=== PATIENT | male | born 1960 | race Caucasian/White ===

== ENCOUNTER 2017-12-20 10:33 | Emergency (ER) | payer MEDICAID ==
[~2017-12-20] VITALS: Ht 172.7 cm; Wt 60.0 kg
[~2017-12-20 10:33] MED LIST: LORA-250 PO; METHADONE PO; PHEN100C4 PO; RESTORIL
[2017-12-20 10:59] VITALS: BP 158/81
[2017-12-20] MEDS ORDERED: LORAZEPAM 1MG TABLET PO ONE (11:00)
[2017-12-20 11:05] LABS: BASOPHILS % 0.3 % (0.0-2.0); EOSINOPHILS % 0.6 % (0.0-5.0); HEMATOCRIT. 43.1 % (42.0-52.0); LYMPHOCYTES % 13.5 % (20.0-50.0); MEAN CORPUSCULAR HEMOGLOBIN 32.1 pg (28.0-32.0); MEAN CORPUSCULAR VOLUME 92.4 fL (80.0-94.0); MEAN PLATELET VOLUME 9.4 fl (7.4-10.4); MONOCYTES % 3.1 % (2.0-8.0); NEUTROPHILS % 82.5 % (40.0-76.0); PLATELET 229 x1000/uL (130-400); RED BLOOD CELL COUNT 4.66 mill/uL (4.7-6.1); RED CELL DISTRIBUTION WIDTH 14.1 % (11.6-14.6)
[2017-12-20 11:11] LABS: CHLORIDE 101 mEq/L (98-107)
== END 2017-12-20 11:45 | disposition home or self-care (01) ==
LOC: ER 10:33
DX: R53.1 Weakness (principal); R11.2 Nausea with vomiting, unspecified; F19.939 Other psychoactive substance use, unspecified with withdrawal, unspecified; R03.0 Elevated blood-pressure reading, without diagnosis of hypertension; R00.1 Bradycardia, unspecified; G40.909 Epilepsy, unspecified, not intractable, without status epilepticus; R94.31 Abnormal electrocardiogram [ECG] [EKG]
CPT/HCPCS: 36415; 80053; 80185; 83880; 84484; 85025; 93005; 99285

== ENCOUNTER 2020-08-02 17:35 | Emergency (ER) | payer MEDICAID ==
[~2020-08-02] VITALS: Ht 175.3 cm; Wt 70.0 kg
[2020-08-02] MEDS ORDERED: SODIUM CHLORIDE 0.9% 1,000 ML IV ONE (18:15)
[2020-08-02 18:23] LABS: BASOPHILS % 0.1 % (0.0-2.0); HEMATOCRIT. 40.4 % (42.0-52.0); HEMOGLOBIN. 13.6 g/dL (14.0-18.0); LYMPHOCYTES % 12.3 % (20.0-50.0); MEAN CORPUSCULAR HEMOGLOBIN 32.1 pg (28.0-32.0); MEAN PLATELET VOLUME 8.8 fl (7.4-10.4); MONOCYTES % 5.5 % (2.0-8.0); NEUTROPHILS % 81.1 % (40.0-76.0); PLATELET 160 x1000/uL (130-400); RED BLOOD CELL COUNT 4.25 mill/uL (4.7-6.1); RED CELL DISTRIBUTION WIDTH 13.1 % (11.6-14.6)
[2020-08-02 18:30] LABS: CHLORIDE 104 mEq/L (98-107)
[2020-08-02] MEDS ORDERED: POTASSIUM CHLORIDE 20MEQ TABLET SR PO ONE (19:00)
[2020-08-02] MEDS ORDERED: PHENYTOIN SODIUM 1,000 MG in SODIUM CHLORIDE 0.9% 100 ML IV ONE (19:00)
[2020-08-02] MEDS ORDERED: PHENYTOIN SODIUM EXTENDED 100MG CAPSULE PO ONE (19:15)
[2020-08-02 20:22] VITALS: BP 124/84
== END 2020-08-02 20:29 | disposition home or self-care (01) ==
LOC: ER 17:35
DX: R56.9 Unspecified convulsions (principal); E87.6 Hypokalemia; F41.9 Anxiety disorder, unspecified; F17.290 Nicotine dependence, other tobacco product, uncomplicated; Z79.899 Other long term (current) drug therapy
CPT/HCPCS: 36415; 80053; 80185; 85025; 93005; 99284; J1165; J7030; J7050

== ENCOUNTER → 2021-05-16 | Emergency (ER) | payer MEDICAID ==
[~2021-05-16] VITALS: Ht 172.7 cm; Wt 54.0 kg
[2021-05-16 14:23] LABS: CLARITY URINE CLEAR (CLEAR); COLOR URINE YELLOW (YELLOW); KETONES URINE 1+ (NEGATIVE); LEUKOCYTE ESTERASE URINE 1+ (NEGATIVE); NITRITE URINE NEGATIVE (NEGATIVE); OCCULT BLOOD URINE TRACE (NEGATIVE); PH URINE 6.5 (4.5-8.0); PROTEIN URINE 1+ (NEGATIVE); SPECIFIC GRAVITY URINE 1.021 (1.005-1.030); UROBILINOGEN URINE 0.2 E.U./dL (0.2-1.0)
[2021-05-16 14:40] LABS: BASOPHILS % 0.4 % (0.0-2.0); EOSINOPHILS % 0.7 % (0.0-5.0); HEMATOCRIT. 41.1 % (42.0-52.0); HEMOGLOBIN. 13.6 g/dL (14.0-18.0); LYMPHOCYTES % 17.4 % (20.0-50.0); MEAN CORPUSCULAR HEMOGLOBIN 31.2 pg (28.0-32.0); MEAN CORPUSCULAR VOLUME 94.5 fL (80.0-94.0); MEAN PLATELET VOLUME 8.8 fl (7.4-10.4); MONOCYTES % 5.4 % (2.0-8.0); NEUTROPHILS % 76.1 % (40.0-76.0); PLATELET 192 x1000/uL (130-400); RED BLOOD CELL COUNT 4.35 mill/uL (4.7-6.1); RED CELL DISTRIBUTION WIDTH 14.1 % (11.6-14.6)
[2021-05-16 14:43] LABS: CHLORIDE 101 mEq/L (98-107)
[2021-05-16 14:48] LABS: ETHANOL BLOOD < 10 mg/dL
[2021-05-16 14:51] LABS: *BARBITURATES SCREEN URINE NEGATIVE (NEGATIVE)
[2021-05-16 14:52] VITALS: BP 125/62
[2021-05-16 14:52] LABS: *BENZODIAZEPINES SCREEN URINE PRESUMTIVE POSITIVE (NEGATIVE); *COCAINE SCREEN URINE NEGATIVE (NEGATIVE); CANNABINOID URINE SCREEN PRESUMTIVE POSITIVE (NEGATIVE); METHADONE URINE SCREEN PRESUMTIVE POSITIVE (NEGATIVE); OPIATES URINE SCREEN PRESUMTIVE POSITIVE (NEGATIVE); PHENCYCLIDINE URINE SCREEN NEGATIVE (NEGATIVE)
[2021-05-16 14:56] LABS: *AMPHETAMINES SCREEN URINE NEGATIVE (NEGATIVE)
== END ==
LOC: ER 12:56
DX: R56.9 Unspecified convulsions (principal); F41.9 Anxiety disorder, unspecified
CPT/HCPCS: 36415; 71045; 80053; 80185; 80305; 80320; 81003; 84484; 85025; 99285; G0480

== ENCOUNTER 2022-02-22 02:08 | Emergency (ER) | payer MEDICAID ==
[~2022-02-22] VITALS: Ht 177.8 cm; Wt 43.0 kg
[2022-02-22] MEDS ORDERED: LEVETIRACETAM 500MG PREMIX 100 ML IV ONE (02:30)
[2022-02-22 03:27] LABS: HEMATOCRIT. 41.3 % (42.0-52.0); MEAN CORPUSCULAR HEMOGLOBIN 30.7 pg (28.0-32.0); MEAN CORPUSCULAR VOLUME 90.7 fL (80.0-94.0); MEAN PLATELET VOLUME 8.2 fl (7.4-10.4); PLATELET 177 x1000/uL (130-400); RED BLOOD CELL COUNT 4.56 mill/uL (4.7-6.1)
[2022-02-22] MEDS ORDERED: LORAZEPAM 1MG TABLET PO ONE (04:30)
[2022-02-22 05:48] LABS: CHLORIDE 91 mEq/L (98-107)
[2022-02-22 05:52] LABS: CLARITY URINE CLOUDY (CLEAR); COLOR URINE YELLOW (YELLOW); KETONES URINE TRACE (NEGATIVE); LEUKOCYTE ESTERASE URINE NEGATIVE (NEGATIVE); NITRITE URINE NEGATIVE (NEGATIVE); OCCULT BLOOD URINE 1+ (NEGATIVE); PH URINE 5.5 (4.5-8.0); PROTEIN URINE 2+ (NEGATIVE); SPECIFIC GRAVITY URINE 1.029 (1.005-1.030)
[2022-02-22 05:56] LABS: ETHANOL BLOOD < 10 mg/dL
[2022-02-22 06:32] LABS: *AMPHETAMINES SCREEN URINE NEGATIVE (NEGATIVE); *BARBITURATES SCREEN URINE NEGATIVE (NEGATIVE); *BENZODIAZEPINES SCREEN URINE NEGATIVE (NEGATIVE); *COCAINE SCREEN URINE NEGATIVE (NEGATIVE); CANNABINOID URINE SCREEN PRESUMTIVE POSITIVE (NEGATIVE); METHADONE URINE SCREEN PRESUMTIVE POSITIVE (NEGATIVE); OPIATES URINE SCREEN PRESUMTIVE POSITIVE (NEGATIVE); PHENCYCLIDINE URINE SCREEN NEGATIVE (NEGATIVE)
[2022-02-22 07:24] VITALS: BP 159/73
[2022-02-22 08:17] LABS: PLATELET ESTIMATE NORMAL
== END 2022-02-22 07:16 | disposition left against medical advice (07) ==
LOC: ER 02:08 → CANBEDREQ 02-23 08:47
DX: R56.9 Unspecified convulsions (principal)
CPT/HCPCS: 36415; 70450; 80053; 80305; 80320; 81003; 82962; 85025; 96374; 99284; J1953; G0480

== ENCOUNTER 2024-01-03 17:01 | Emergency (ER) | payer MEDICAID ==
[~2024-01-03] VITALS: Ht 172.7 cm; Wt 56.0 kg
[2024-01-03 17:09] VITALS: BP 161/82; PULSE 90; RESP 16; TEMP 97.5; O2SAT 98
== END 2024-01-03 18:39 | disposition home or self-care (01) ==
LOC: ER 17:01
DX: S20.219A Contusion of unspecified front wall of thorax, initial encounter (principal); I25.2 Old myocardial infarction; Z86.59 Personal history of other mental and behavioral disorders; Z86.73 Personal history of transient ischemic attack (TIA), and cerebral infarction without residual deficits; W10.1XXA Fall (on)(from) sidewalk curb, initial encounter; Y93.89 Activity, other specified; Y92.89 Other specified places as the place of occurrence of the external cause; Y99.8 Other external cause status
CPT/HCPCS: 99283

== ENCOUNTER 2024-01-11 15:38 | Emergency (ER) | payer MEDICAID ==
[~2024-01-11] VITALS: Ht 170.2 cm; Wt 52.0 kg
[2024-01-11 15:40] VITALS: TEMP 98.4; O2SAT 94
[2024-01-11] MEDS: MORPHINE SULFATE 2 MG/ML INJ (NOT FOR IM USE) IV ONE (16:56)
[2024-01-11 17:50] LABS: BASOPHILS % 0.5 % (0.0-2.0); EOSINOPHILS % 0.8 % (0.0-5.0); HEMATOCRIT. 39.7 % (42.0-52.0); HEMOGLOBIN. 13.5 g/dL (14.0-18.0); LYMPHOCYTES % 19.5 % (20.0-50.0); MEAN CORPUSCULAR HEMOGLOBIN 31.7 pg (28.0-32.0); MEAN CORPUSCULAR HGB CONC 34.1 g/dL (31.0-37.0); MEAN CORPUSCULAR VOLUME 93.1 fL (80.0-94.0); MEAN PLATELET VOLUME 6.6 fl (7.4-10.4); MONOCYTES % 5.2 % (2.0-8.0); PLATELET 381 x1000/uL (130-400); RED BLOOD CELL COUNT 4.26 mill/uL (4.7-6.1); WHITE BLOOD COUNT 9.3 x1000/uL (4.5-11.0)
[2024-01-11 18:05] LABS: CHLORIDE 108 mEq/L (98-107); POTASSIUM 3.3 mEq/L (3.5-5.1); SODIUM 143 mEq/L (136-145)
[2024-01-11 18:06] LABS: CALCIUM 8.8 mg/dL (8.7-10.4); CARBON DIOXIDE 28 mEq/L (21-32)
[2024-01-11 18:11] LABS: CREATININE 0.5 mg/dL (0.6-1.3); GLUCOSE 126 mg/dL (70-105); UREA NITROGEN BLOOD 11 mg/dL (9-23)
[2024-01-11 18:13] LABS: ALANINE AMINOTRANSFERASE 19 IU/L (10-49); ALBUMIN 4.2 g/dL (3.2-4.8); ASPARTATE AMINOTRANSFERASE 24 IU/L (<34); BILIRUBIN TOTAL < 0.2 mg/dL (0.1-1.0); PROTEIN TOTAL 6.6 g/dL (6.0-8.3)
[2024-01-11] MEDS ORDERED: IOHEXOL-350 100 ML BOTTLE ONE (23:51)
[2024-01-12 05:50] VITALS: BP 164/86; PULSE 72; RESP 16
== END 2024-01-12 06:10 | disposition home or self-care (01) ==
LOC: ER 15:38
DX: R07.81 Pleurodynia (principal); R91.8 Other nonspecific abnormal finding of lung field; F41.9 Anxiety disorder, unspecified; I25.2 Old myocardial infarction; R56.9 Unspecified convulsions; Z86.73 Personal history of transient ischemic attack (TIA), and cerebral infarction without residual deficits; Z88.0 Allergy status to penicillin; W18.39XA Other fall on same level, initial encounter; Y93.89 Activity, other specified; Y92.89 Other specified places as the place of occurrence of the external cause; Y99.8 Other external cause status
CPT/HCPCS: 80053; 85025; 36415; 74174; 71045; 71275; 70450; 96374; 99285; Q9967; J2270; Z7610 ×3

== ENCOUNTER 2024-05-07 23:35 | Inpatient (IN) | payer MEDICAID ==
[~2024-05-07] VITALS: Ht 177.8 cm; Wt 53.5 kg
[2024-05-07 23:37] VITALS: BP 154/71; PULSE 72; RESP 20; TEMP 36.3624
[2024-05-07 23:45] VITALS: BP 154/71; PULSE 72; RESP 20; TEMP 36.33624; O2SAT 100
[2024-05-08] MEDS ORDERED: ONDANSETRON HCL 4MG/2ML INJ IV PRN (03:15)
[2024-05-08] MEDS ORDERED: IPRATROPIUM/ALBUTEROL 0.5-3(2.5)MG/3ML NEB HHN PRN (03:15)
[2024-05-08] MEDS ORDERED: GUAIFENESIN 200MG 200 MG TABLET PO PRN (03:15)
[2024-05-08] MEDS ORDERED: ACETAMINOPHEN 325MG TABLET PO PRN (03:15)
[2024-05-08] MEDS ORDERED: CLONIDINE 0.1MG TABLET PO PRN (03:15)
[2024-05-08] MEDS: ACETAMINOPHEN 325MG TABLET PO PRN (04:29)
[2024-05-08] MEDS: DEXT 5%/LACTATED RINGERS 1,000 ML IV SCH (05:02)
[2024-05-08 06:41] LABS: CHLORIDE 104 mEq/L (98-107); POTASSIUM 4.3 mEq/L (3.5-5.1); SODIUM 137 mEq/L (136-145)
[2024-05-08 06:44] LABS: CALCIUM 8.5 mg/dL (8.7-10.4); CARBON DIOXIDE 26 mEq/L (21-32)
[2024-05-08 06:49] LABS: CREATININE 0.5 mg/dL (0.6-1.3); GLUCOSE 152 mg/dL (70-105); UREA NITROGEN BLOOD 13 mg/dL (9-23)
[2024-05-08 06:51] LABS: ALANINE AMINOTRANSFERASE 49 IU/L (10-49); ALBUMIN 3.6 g/dL (3.2-4.8); ASPARTATE AMINOTRANSFERASE 110 IU/L (<34); BILIRUBIN TOTAL 0.4 mg/dL (0.1-1.0); PREALBUMIN 5.4 mg/dl (10.0-40.0)
[2024-05-08 06:52] LABS: PROTEIN TOTAL 6.3 g/dL (6.0-8.3)
[2024-05-08] MEDS ORDERED: ALPR1TAB2 PO (07:31)
[2024-05-08] MEDS ORDERED: HYDR-4009 PO (07:31)
[2024-05-08] MEDS ORDERED: TRAZ-252 PO (07:31)
[2024-05-08] MEDS ORDERED: LEVE10006 PO (07:31)
[2024-05-08 08:00] VITALS: BP 145/85; PULSE 79; RESP 16; TEMP 36.50292; O2SAT 99
[2024-05-08 08:15] LABS: BASOPHILS % 0.3 % (0.0-2.0); EOSINOPHILS % 1.4 % (0.0-5.0); HEMATOCRIT. 24.7 % (42.0-52.0); HEMOGLOBIN. 8.5 g/dL (14.0-18.0); LYMPHOCYTES % 15.2 % (20.0-50.0); MEAN CORPUSCULAR HEMOGLOBIN 32.9 pg (28.0-32.0); MEAN CORPUSCULAR HGB CONC 34.4 g/dL (31.0-37.0); MEAN CORPUSCULAR VOLUME 95.7 fL (80.0-94.0); MEAN PLATELET VOLUME 7.1 fl (7.4-10.4); MONOCYTES % 8.7 % (2.0-8.0); NEUTROPHILS % 74.4 % (40.0-76.0); PLATELET 406 x1000/uL (130-400); RED BLOOD CELL COUNT 2.59 mill/uL (4.7-6.1); RED CELL DISTRIBUTION WIDTH 16.5 % (11.6-14.6)
[2024-05-08] MEDS: LEVETIRACETAM 500MG PREMIX 100 ML IV SCH (10:48)
[2024-05-08] MEDS: ENOXAPARIN 40MG/0.4ML SYR SUBCUT SCH (10:49)
[2024-05-08] MEDS: FAMOTIDINE 20MG TABLET PO SCH (10:49)
[2024-05-08] MEDS: ZINC SULFATE 220 MG ( 50 ) CAPSULE PO SCH (10:49)
[2024-05-08] MEDS: THIAMINE HCL 100MG TABLET PO SCH (10:49)
[2024-05-08] MEDS: DOCUSATE SODIUM 100MG CAPSULE PO SCH (10:49)
[2024-05-08] MEDS: LOSARTAN 50 MG TABLET PO SCH (10:50)
[2024-05-08] MEDS: FOLIC ACID 1MG TABLET PO SCH (10:50)
[2024-05-08] MEDS: ASCORBIC ACID 500 MG TABLET PO SCH ×2 (10:50→13:30)
[2024-05-08] MEDS ORDERED: HYDROCODONE/ACETAMINOPHEN 5/325MG TABLET PO PRN ×2 (13:15→13:45)
[2024-05-08] MEDS: CYANOCOBALAMIN 1000MCG/ML VIAL IM SCH (13:41)
[2024-05-08] MEDS ORDERED: NALOXONE HCL 0.4MG/ML 1ML VIAL IV PRN (13:45)
[2024-05-08] MEDS: HYDROCODONE/ACETAMINOPHEN 5/325MG TABLET PO PRN (13:46)
[2024-05-08] MEDS: FERROUS SULFATE 325MG TABLET PO SCH (18:33)
[2024-05-08 19:33] VITALS: BP 160/77; PULSE 76; RESP 19; TEMP 36.72516; O2SAT 99
[2024-05-08] MEDS: AMLODIPINE 5MG TABLET PO SCH (21:00)
[2024-05-08] MEDS ORDERED: LORAZEPAM 2MG/ML INJ IV PRN (21:45)
[2024-05-09 06:45] LABS: BASOPHILS % 0.3 % (0.0-2.0); EOSINOPHILS % 1.8 % (0.0-5.0); HEMATOCRIT. 22.6 % (42.0-52.0); LYMPHOCYTES % 16.1 % (20.0-50.0); MEAN CORPUSCULAR HEMOGLOBIN 33.3 pg (28.0-32.0); MEAN CORPUSCULAR HGB CONC 35.2 g/dL (31.0-37.0); MEAN CORPUSCULAR VOLUME 94.6 fL (80.0-94.0); MEAN PLATELET VOLUME 7.2 fl (7.4-10.4); MONOCYTES % 8.8 % (2.0-8.0); PLATELET 419 x1000/uL (130-400); RED BLOOD CELL COUNT 2.39 mill/uL (4.7-6.1); RED CELL DISTRIBUTION WIDTH 16.3 % (11.6-14.6); WHITE BLOOD COUNT 11.5 x1000/uL (4.5-11.0)
[2024-05-09 08:00] VITALS: BP 169/80; PULSE 68; RESP 18; TEMP 36.33624; O2SAT 98
[2024-05-09] MEDS: ENOXAPARIN 30MG/0.3ML SYR SUBCUT SCH (09:05)
[2024-05-09] MEDS: ISOSORBIDE MONONITRATE 30MG TABLET SR 24HR PO SCH (13:26)
[2024-05-09] MEDS ORDERED: ZOLPIDEM TARTRATE 5MG TABLET PO PRN (13:45)
[2024-05-09] MEDS: HYDROCODONE/ACETAMINOPHEN 5/325MG TABLET PO PRN (15:47)
[2024-05-09 20:00] VITALS: BP 125/60; PULSE 78; RESP 18; TEMP 36.78072; O2SAT 98
[2024-05-09] MEDS: ZOLPIDEM TARTRATE 5MG TABLET PO PRN (20:16)
[2024-05-10 07:49] VITALS: BP 169/76; PULSE 78; RESP 18; TEMP 36.44736; O2SAT 98
[2024-05-10 09:07] LABS: PROSTATE SPECIFIC AG TOTAL 0.2 ng/mL (0.0-4.0)
[2024-05-10 10:09] VITALS: BP 169/76; PULSE 78; TEMP 97.6
[2024-05-10 13:07] LABS: VITAMIN D 25-OH 8.4 ng/mL (30.0-100.0)
[2024-05-10] MEDS: CHOLECALCIFEROL (D3) 1000 UNIT TABLET PO SCH (17:20)
[2024-05-10 20:00] VITALS: BP 155/76; PULSE 91; RESP 19; TEMP 36.89184; O2SAT 98
[2024-05-10] MEDS: ZOLPIDEM TARTRATE 5MG TABLET PO PRN (21:26)
[2024-05-11 08:00] VITALS: BP 150/75; PULSE 80; RESP 16; TEMP 36.22512; O2SAT 98
[2024-05-11] MEDS ORDERED: DOXYCYCLINE HYCLATE 100 MG/VIAL IV SCH (09:00)
[2024-05-11] MEDS: DOXYCYCLINE 100MG/100ML 100 ML IV SCH (12:55)
[2024-05-11 13:36] LABS: BASOPHILS % 0.4 % (0.0-2.0); EOSINOPHILS % 1.3 % (0.0-5.0); HEMATOCRIT. 21.8 % (42.0-52.0); HEMOGLOBIN. 7.3 g/dL (14.0-18.0); LYMPHOCYTES % 12.6 % (20.0-50.0); MEAN CORPUSCULAR HEMOGLOBIN 32.1 pg (28.0-32.0); MEAN CORPUSCULAR HGB CONC 33.3 g/dL (31.0-37.0); MEAN CORPUSCULAR VOLUME 96.4 fL (80.0-94.0); MONOCYTES % 8.3 % (2.0-8.0); NEUTROPHILS % 77.4 % (40.0-76.0); PLATELET 465 x1000/uL (130-400); RED BLOOD CELL COUNT 2.26 mill/uL (4.7-6.1); RED CELL DISTRIBUTION WIDTH 17.3 % (11.6-14.6); WHITE BLOOD COUNT 13.3 x1000/uL (4.5-11.0)
[2024-05-11 18:28] LABS: PROTHROMBIN TIME 10.9 sec (9.6-11.0)
[2024-05-11 20:00] VITALS: BP 139/65; PULSE 82; RESP 20; TEMP 36.3918; O2SAT 98
[2024-05-11] MEDS: LEVETIRACETAM 500MG TABLET PO SCH (20:48)
[2024-05-11] MEDS: ALPRAZOLAM 0.5 MG TABLET PO SCH (20:49)
[2024-05-12 08:00] VITALS: BP 143/67; PULSE 86; RESP 20; TEMP 36.61404; O2SAT 98
[2024-05-12] MEDS ORDERED: LIDOCAINE HCL 1% 10 MG/ML 10ML VIAL ONE (08:40)
[2024-05-12 20:00] VITALS: BP 146/66; PULSE 88; RESP 18; TEMP 36.44736; O2SAT 98
[2024-05-12] MEDS: ALPRAZOLAM 0.5 MG TABLET PO SCH (21:18)
[2024-05-13] VITALS (12 sets, daily range): BP systolic 128–146; BP diastolic 51–75; PULSE 74–91; RESP 17–25; TEMP 36.55848–36.72516; O2SAT 96–100
[2024-05-13 09:12] LABS: ALPHA FETOPROTEIN TUMOR MARKER 1.9 ng/mL (0.0-8.4); CARCINOEMBRYONIC AG - SEND OUT 6.4 ng/mL (0.0-4.7)
[2024-05-13] MEDS ORDERED: MIDAZOLAM HCL 2 MG/2 ML VIAL ONE (10:13)
[2024-05-13] MEDS ORDERED: FENTANYL CITRATE/PF 50MCG/ML 2ML VIAL ONE (10:13)
[2024-05-13] MEDS ORDERED: LIDOCAINE HCL 1% 10 MG/ML 10ML VIAL ONE (10:32)
[2024-05-13] MEDS ORDERED: SODIUM BICARBONATE 4% 2.4MEQ/5ML VIAL IV ONE (10:33)
[2024-05-13] MEDS: MIDAZOLAM HCL 5 MG/5 ML VIAL IV ONE (11:02)
[2024-05-13] MEDS: FENTANYL CITRATE/PF 50MCG/ML 2ML VIAL IV ONE (11:02)
[2024-05-13] MEDS: ENOXAPARIN 40MG/0.4ML SYR SUBCUT SCH (17:21)
[2024-05-14 06:35] LABS: BASOPHILS % 0.4 % (0.0-2.0); EOSINOPHILS % 1.1 % (0.0-5.0); HEMATOCRIT. 24.4 % (42.0-52.0); HEMOGLOBIN. 8.4 g/dL (14.0-18.0); LYMPHOCYTES % 13.1 % (20.0-50.0); MEAN CORPUSCULAR HEMOGLOBIN 33.1 pg (28.0-32.0); MEAN CORPUSCULAR HGB CONC 34.4 g/dL (31.0-37.0); MEAN CORPUSCULAR VOLUME 96.1 fL (80.0-94.0); MEAN PLATELET VOLUME 6.9 fl (7.4-10.4); MONOCYTES % 8.6 % (2.0-8.0); NEUTROPHILS % 76.8 % (40.0-76.0); PLATELET 490 x1000/uL (130-400); RED BLOOD CELL COUNT 2.54 mill/uL (4.7-6.1); RED CELL DISTRIBUTION WIDTH 17.6 % (11.6-14.6); WHITE BLOOD COUNT 11.7 x1000/uL (4.5-11.0)
[2024-05-14 06:58] LABS: CARBON DIOXIDE 24 mEq/L (21-32); CHLORIDE 96 mEq/L (98-107); POTASSIUM 5.1 mEq/L (3.5-5.1); SODIUM 127 mEq/L (136-145)
[2024-05-14 07:03] LABS: CREATININE 0.6 mg/dL (0.6-1.3)
[2024-05-14 07:04] LABS: GLUCOSE 127 mg/dL (70-105); UREA NITROGEN BLOOD 20 mg/dL (9-23)
[2024-05-14 08:00] VITALS: BP 125/70; PULSE 73; RESP 18; TEMP 36.33624; O2SAT 96
[2024-05-14] MEDS: SODIUM ZIRCONIUM CYCLOSILICATE 10GM/PACKET PO NR (12:51)
[2024-05-14 14:55] LABS: THYROID STIMULATING HORMONE 2.7 uIU/mL (0.55-4.78)
[2024-05-14] MEDS: LEVOFLOXACIN 500MG TABLET PO SCH (15:54)
[2024-05-14 20:00] VITALS: BP 110/65; PULSE 78; RESP 18; TEMP 36.72516; O2SAT 96
[2024-05-14] MEDS: GABAPENTIN 100MG CAPSULE PO SCH (21:27)
[2024-05-14] MEDS ORDERED: CEPHALEXIN 250MG CAPSULE PO SCH (22:00)
[2024-05-15 08:00] VITALS: BP 142/98; PULSE 82; RESP 20; TEMP 36.33624; O2SAT 96
[2024-05-15 10:02] LABS: CHLORIDE 98 mEq/L (98-107); POTASSIUM 4.5 mEq/L (3.5-5.1); SODIUM 127 mEq/L (136-145)
[2024-05-15 10:03] LABS: BASOPHILS % 0.9 % (0.0-2.0); CARBON DIOXIDE 21 mEq/L (21-32); EOSINOPHILS % 1.3 % (0.0-5.0); HEMOGLOBIN. 7.6 g/dL (14.0-18.0); LYMPHOCYTES % 14.2 % (20.0-50.0); MEAN CORPUSCULAR HEMOGLOBIN 33.5 pg (28.0-32.0); MEAN CORPUSCULAR HGB CONC 34.6 g/dL (31.0-37.0); MEAN CORPUSCULAR VOLUME 96.7 fL (80.0-94.0); MEAN PLATELET VOLUME 7.2 fl (7.4-10.4); MONOCYTES % 8.3 % (2.0-8.0); NEUTROPHILS % 75.3 % (40.0-76.0); PLATELET 482 x1000/uL (130-400); RED BLOOD CELL COUNT 2.27 mill/uL (4.7-6.1); RED CELL DISTRIBUTION WIDTH 17.1 % (11.6-14.6); WHITE BLOOD COUNT 8.8 x1000/uL (4.5-11.0)
[2024-05-15 10:04] LABS: CALCIUM 8.6 mg/dL (8.7-10.4)
[2024-05-15 10:08] LABS: CREATININE 0.6 mg/dL (0.6-1.3); GLUCOSE 233 mg/dL (70-105); UREA NITROGEN BLOOD 16 mg/dL (9-23)
[2024-05-15 20:00] VITALS: BP 133/62; PULSE 93; RESP 20; TEMP 36.114; O2SAT 98
[2024-05-16 08:00] VITALS: BP 142/66; PULSE 91; RESP 18; TEMP 36.61404; O2SAT 99
[2024-05-16 08:22] VITALS: BP 142/66; PULSE 74; RESP 18; TEMP 36.61404; O2SAT 99
[2024-05-16] MEDS ORDERED: NALOXONE HCL 0.4MG/ML VIAL IV PRN (09:45)
[2024-05-16 10:08] LABS: ALANINE AMINOTRANSFERASE 41 IU/L (10-49)
[2024-05-16 10:09] LABS: ASPARTATE AMINOTRANSFERASE 30 IU/L (<34)
[2024-05-16 10:10] LABS: ALBUMIN 3.8 g/dL (3.2-4.8)
[2024-05-16 10:11] LABS: PROTEIN TOTAL 6.5 g/dL (6.0-8.3)
[2024-05-16] MEDS: HYDROCODONE/ACETAMINOPHEN 5/325MG TABLET PO PRN (10:15)
[2024-05-16 10:38] LABS: HIV 1/2 AB P24AG Negative (Negative)
[2024-05-16 11:51] LABS: BILIRUBIN TOTAL 0.2 mg/dL (0.1-1.0); HEPATITIS B SURFACE ANTIGEN NEGATIVE (Negative)
[2024-05-16 12:12] LABS: HEPATITIS C AB REACTIVE (Pos) (Negative)
[2024-05-16 12:32] LABS: BILIRUBIN DIRECT < 0.1 mg/dL (<=3.0)
[2024-05-16 20:00] VITALS: BP 140/69; PULSE 97; RESP 18; TEMP 36.78072; O2SAT 97
[2024-05-16] MEDS: MELATONIN 3MG TABLET PO PRN (23:05)
[2024-05-17 08:00] VITALS: BP 121/57; PULSE 81; RESP 20; TEMP 36.3918; O2SAT 97
[2024-05-17 10:57] VITALS: BP 116/70; PULSE 91
[2024-05-17 20:00] VITALS: BP 112/52; PULSE 62; RESP 20; TEMP 36.44736; O2SAT 95
[2024-05-17] MEDS: ALPRAZOLAM 0.5 MG TABLET PO SCH (20:44)
[2024-05-18] MEDS ORDERED: LORAZEPAM 1MG TABLET PO SCH (06:00)
[2024-05-18 08:00] VITALS: BP 120/61; PULSE 89; RESP 18; TEMP 36.33624; O2SAT 100
[2024-05-18 09:38] VITALS: BP 124/61; PULSE 89; TEMP 97.4; O2SAT 100
[2024-05-18] MEDS ORDERED: FAMO-135 PO (10:54)
[2024-05-18] MEDS ORDERED: FOLI-43 PO (10:55)
[2024-05-18] MEDS ORDERED: LOSA-413 PO (10:57)
[2024-05-18] MEDS ORDERED: ZINC220C6 PO (10:59)
[2024-05-18] MEDS ORDERED: THIA100T88 PO (10:59)
[2024-05-18] MEDS ORDERED: DOCU-138 PO (11:08)
[2024-05-18] MEDS ORDERED: ASCO500T19 PO (11:09)
[2024-05-18] MEDS ORDERED: FERR325T23 PO (11:12)
[2024-05-18] MEDS ORDERED: AMLO5TAB5 PO (11:16)
[2024-05-18] MEDS ORDERED: ISOS30TA91 PO (11:21)
[2024-05-18] MEDS ORDERED: KEPP500 MT (11:22)
[2024-05-18] MEDS ORDERED: LEVO-65 MT (11:23)
[2024-05-18] MEDS ORDERED: T3 PO (11:25)
[2024-05-21] MEDS ORDERED: CYANOCOBALAMIN 1000MCG/ML VIAL IM SCH (09:00)
== END 2024-05-18 11:48 | disposition home health service (06) | DRG 52 ==
PROVIDERS: ADMIT Physical Medicine & Rehabilitation Spinal Cord Injury Medicine; ATTEND Internal Medicine
PROC: 0X983ZZ Drainage of Right Upper Arm, Percutaneous Approach (ICD-10-PCS; principal; 2024-05-12)
PROC: 0BBG3ZX Excision of Left Upper Lung Lobe, Percutaneous Approach, Diagnostic (ICD-10-PCS; 2024-05-13)
DX: G93.41 Metabolic encephalopathy (principal); S72.141A Displaced intertrochanteric fracture of right femur, initial encounter for closed fracture; E46 Unspecified protein-calorie malnutrition; D62 Acute posthemorrhagic anemia; D63.8 Anemia in other chronic diseases classified elsewhere; E87.1 Hypo-osmolality and hyponatremia; D70.9 Neutropenia, unspecified; R53.81 Other malaise; R73.9 Hyperglycemia, unspecified; E53.8 Deficiency of other specified B group vitamins; E61.1 Iron deficiency; E78.00 Pure hypercholesterolemia, unspecified; G40.909 Epilepsy, unspecified, not intractable, without status epilepticus; I10 Essential (primary) hypertension; I16.0 Hypertensive urgency; I25.10 Atherosclerotic heart disease of native coronary artery without angina pectoris; J44.9 Chronic obstructive pulmonary disease, unspecified; M48.061 Spinal stenosis, lumbar region without neurogenic claudication; R13.10 Dysphagia, unspecified; E55.9 Vitamin D deficiency, unspecified; Z20.822 Contact with and (suspected) exposure to COVID-19; L02.413 Cutaneous abscess of right upper limb; L02.414 Cutaneous abscess of left upper limb; S40.021A Contusion of right upper arm, initial encounter; E87.5 Hyperkalemia; B19.20 Unspecified viral hepatitis C without hepatic coma; R41.89 Other symptoms and signs involving cognitive functions and awareness; R47.1 Dysarthria and anarthria; R26.2 Difficulty in walking, not elsewhere classified; F19.10 Other psychoactive substance abuse, uncomplicated; R91.8 Other nonspecific abnormal finding of lung field; F17.210 Nicotine dependence, cigarettes, uncomplicated; Z68.1 Body mass index [BMI] 19.9 or less, adult; Z79.899 Other long term (current) drug therapy; I25.2 Old myocardial infarction; Z86.73 Personal history of transient ischemic attack (TIA), and cerebral infarction without residual deficits; Z88.0 Allergy status to penicillin; Z91.81 History of falling; W18.30XA Fall on same level, unspecified, initial encounter; Y92.89 Other specified places as the place of occurrence of the external cause; Y93.89 Activity, other specified; Y99.8 Other external cause status
CPT/HCPCS: 20611; 32408; 36415; 71045; 71250; 73206; 73223; 73502; 80048; 80053; 80061; 80076; 82105; 82270; 82306; 82378; 82533; 83930; 83935; 84134; 84153; 84443; 85025; 86705; 87077; 87186; 87305; 87340; 87426; 88305; 92523; 92610; 93922; 93971; 97110; 97116; 97162; 97166; 97530; 97535; 97542; 99152; 99153; C1893; J1650; J1953; J2250; J3010; J3420; J3490; J7121; G0500

== ENCOUNTER 2024-09-02 11:36 | Emergency (ER) | payer MEDICAID ==
[~2024-09-02] VITALS: Ht 167.6 cm; Wt 48.0 kg
[~2024-09-02 11:36] MED LIST changes: +AMLO5TAB5 PO; +ASCO500T19 PO; +DOCU-138 PO; +FAMO-135 PO; +FERR325T23 PO; +FOLI-43 PO; +ISOS30TA91 PO; +KEPP500 MT; +LEVO-65 MT; -LORA-250 PO; +LOSA-413 PO; -METHADONE PO; -PHEN100C4 PO; -RESTORIL; +T3 PO; +THIA100T88 PO; +ZINC220C6 PO
[2024-09-02 11:44] VITALS: O2SAT 97
[2024-09-02 12:09] VITALS: BP 134/76; PULSE 56; RESP 16; TEMP 36.6; O2SAT 97
[2024-09-02] MEDS ORDERED: LEVETIRACETAM 500MG PREMIX 100 ML IV ONE (12:15)
[2024-09-02 12:26] LABS: BASOPHILS % 0.2 % (0.0-2.0); CHLORIDE 103 mEq/L (98-107); EOSINOPHILS % 0.2 % (0.0-5.0); HEMATOCRIT. 41.3 % (42.0-52.0); HEMOGLOBIN. 13.6 g/dL (14.0-18.0); LYMPHOCYTES % 13.7 % (20.0-50.0); MEAN CORPUSCULAR HGB CONC 32.9 g/dL (31.0-37.0); MEAN PLATELET VOLUME 7.4 fl (7.4-10.4); MONOCYTES % 4.1 % (2.0-8.0); NEUTROPHILS % 81.8 % (40.0-76.0); PLATELET 253 x1000/uL (130-400); POTASSIUM 3.2 mEq/L (3.5-5.1); RED BLOOD CELL COUNT 4.39 mill/uL (4.7-6.1); SODIUM 142 mEq/L (136-145); WHITE BLOOD COUNT 10.3 x1000/uL (4.5-11.0)
[2024-09-02 12:27] LABS: CALCIUM 9.1 mg/dL (8.7-10.4); CARBON DIOXIDE 29 mEq/L (21-32)
[2024-09-02 12:28] LABS: CHLORIDE 103 mEq/L (98-107); POTASSIUM 3.1 mEq/L (3.5-5.1); SODIUM 140 mEq/L (136-145)
[2024-09-02 12:29] LABS: CALCIUM 9.2 mg/dL (8.7-10.4); CARBON DIOXIDE 28 mEq/L (21-32)
[2024-09-02 12:32] LABS: CREATININE 0.6 mg/dL (0.6-1.3); GLUCOSE 163 mg/dL (70-105); UREA NITROGEN BLOOD 26 mg/dL (9-23)
[2024-09-02 12:34] LABS: CREATININE 0.6 mg/dL (0.6-1.3); ETHANOL BLOOD < 10 mg/dL (<10); GLUCOSE 157 mg/dL (70-105); TROPONIN I HIGH SENSITIVITY 7 ng/L (3.0-53); UREA NITROGEN BLOOD 26 mg/dL (9-23)
[2024-09-02 12:36] LABS: ALANINE AMINOTRANSFERASE 18 IU/L (10-49); ALBUMIN 4.3 g/dL (3.2-4.8); ASPARTATE AMINOTRANSFERASE 17 IU/L (<34); BILIRUBIN DIRECT 0.1 mg/dL (<=3.0); BILIRUBIN TOTAL 0.3 mg/dL (0.1-1.0); PROTEIN TOTAL 6.9 g/dL (6.0-8.3)
[2024-09-02 12:39] LABS: THYROID STIMULATING HORMONE 1.31 uIU/mL (0.55-4.78)
[2024-09-02 12:58] LABS: PHENYTOIN < 2.0 ug/mL (10-20)
== END 2024-09-02 12:40 | disposition left against medical advice (07) ==
LOC: ER 11:36
DX: G40.909 Epilepsy, unspecified, not intractable, without status epilepticus (principal); J44.9 Chronic obstructive pulmonary disease, unspecified; Z79.899 Other long term (current) drug therapy; Z88.0 Allergy status to penicillin; Z88.1 Allergy status to other antibiotic agents; Z88.5 Allergy status to narcotic agent
CPT/HCPCS: 36415; 71045; 80048; 80076; 80185; 80320; 83735; 84443; 84484; 85025; 93005; 99285; G0480

== ENCOUNTER 2025-03-02 13:38 | Emergency (ER) | payer MEDICAID ==
[~2025-03-02] VITALS: Ht 177.8 cm; Wt 50.0 kg
[~2025-03-02 13:38] MED LIST changes: -AMLO5TAB5 PO; +AMLO5TAB6 PO
[2025-03-02 13:39] VITALS: O2SAT 94
[2025-03-02 13:56] VITALS: TEMP 36.7
[2025-03-02 14:25] VITALS: TEMP 98.06
[2025-03-02 14:31] LABS: BASOPHILS % 0.5 % (0.0-2.0); EOSINOPHILS % 1.0 % (0.0-5.0); HEMATOCRIT. 35.7 % (42.0-52.0); HEMOGLOBIN. 12.2 g/dL (14.0-18.0); LYMPHOCYTES % 21.1 % (20.0-50.0); MEAN PLATELET VOLUME 7.6 fl (7.4-10.4); MONOCYTES % 6.0 % (2.0-8.0); NEUTROPHILS % 71.4 % (40.0-76.0); PLATELET 247 x1000/uL (130-400); RED BLOOD CELL COUNT 3.88 mill/uL (4.7-6.1); RED CELL DISTRIBUTION WIDTH 15.5 % (11.6-14.6)
[2025-03-02 14:45] LABS: CREATININE 0.7 mg/dL (0.6-1.3); UREA NITROGEN BLOOD 15 mg/dL (9-23)
[2025-03-02 14:46] LABS: ETHANOL BLOOD < 10 mg/dL (<10); TROPONIN I HIGH SENSITIVITY < 4 ng/L (3.0-53)
[2025-03-02 14:47] LABS: ASPARTATE AMINOTRANSFERASE 12 IU/L (<34); BILIRUBIN DIRECT < 0.1 mg/dL (<=3.0)
[2025-03-02 14:48] LABS: BILIRUBIN TOTAL 0.2 mg/dL (0.1-1.0); PROTEIN TOTAL 6.6 g/dL (6.0-8.3)
[2025-03-02 14:57] LABS: PHENYTOIN < 2.0 ug/mL (10-20)
[2025-03-02] MEDS ORDERED: LEVETIRACETAM 1,000MG in NACL 100ML PREMIX IV STA (15:02)
[2025-03-02] MEDS: LEVETIRACETAM 1000MG PREMIX 100 ML IV SCH (15:31)
[2025-03-02] MEDS ORDERED: HYDR-459 MT (15:48)
[2025-03-02] MEDS ORDERED: KEPP500 MT (15:48)
[2025-03-02] MEDS ORDERED: IBUP-1455 MT (15:49)
[2025-03-02 16:15] VITALS: BP 156/61; PULSE 60; RESP 10; O2SAT 95
== END 2025-03-02 17:53 | disposition home or self-care (01) ==
LOC: ER 13:49 → CMPBEDREQ 18:42
DX: R56.9 Unspecified convulsions (principal); F41.9 Anxiety disorder, unspecified; Z53.29 Procedure and treatment not carried out because of patient's decision for other reasons; Z79.899 Other long term (current) drug therapy; Z55.6 Problems related to health literacy; Z88.5 Allergy status to narcotic agent; Z88.0 Allergy status to penicillin; Z88.1 Allergy status to other antibiotic agents
CPT/HCPCS: 80076; 80048; 80320; 80185; 82962; 85025; 84484; 36415; 70450; 93005; 96365; 99285; J1953; 96361; G0480